=== PATIENT | male | born 1970 | race African-American/Black ===

== ENCOUNTER 2019-11-28 19:55 | Emergency (ER) | payer BC ==
[~2019-11-28] VITALS: Ht 193 cm; Wt 124.4 kg
--- NOTE | 2019-11-28 20:57 | NUR ---
[employer]PERVIS[employer] CUTTING: PT WALKED BACK FROM LOBBY TO ROOM AT THIS TIME. STEADY UPON AMBULATION. NO ACUTE DISTRESS NOTED.
[2019-11-28] MEDS ORDERED: LOSA25TA25 PO (21:05)
[2019-11-28] MEDS ORDERED: METF1000 PO (21:05)
[2019-11-28] MEDS ORDERED: ASPIRIN 81 MG TABLET CHEW PO ONE (21:30)
[2019-11-28] MEDS ORDERED: ASPIRIN 81 MG TABLET CHEW ONE (21:45)
--- NOTE | 2019-11-28 21:46 | NUR ---
Pt medicated with 162mg aspirin per DEC. Pt in [facility] no acute distress, denies chest pain, call light placed within reach.
[2019-11-28 21:52] LABS: BASOPHILS # (AUTO) 0.04 x10^3/uL (0-0.1); BASOPHILS % (AUTO) 1 % (0-1); EOSINOPHILS # (AUTO) 0.16 x10^3/uL (0-0.4); EOSINOPHILS % (AUTO) 2 % (1-7); LYMPHOCYTES # (AUTO) 1.37 x10^3/uL (1-3.4); LYMPHOCYTES % (AUTO) 18 % (22-44); MD NO; MEAN CORPUSCULAR HGB CONC 32.1 g/dL (33.2-36.2); MEAN CORPUSCULAR VOLUME 80.9 fL (81-97); MEAN PLATELET VOLUME 8.5 fL (7.4-10.4); MONOCYTES # (AUTO) 0.57 x10^3/uL (0.2-0.8); MONOCYTES % (AUTO) 8 % (2-9); NEUTROPHILS % (AUTO) 71 % (42-75); PLATELET COUNT 355 x10^3/uL (130-400); RED BLOOD COUNT 4.49 x10^6/uL (4.38-5.82)
[2019-11-28 22:00] LABS: ALBUMIN 2.6 g/dL (3.4-5.0); ANION GAP 3 mmol/L (5-15); CALCIUM 8.6 mg/dL (8.5-10.1); CHLORIDE 105 mmol/L (98-107)
[2019-11-28 22:04] LABS: TROPONIN I < 0.015 ng/mL (0.000-0.045)
--- NOTE | 2019-11-28 23:19 | NUR ---
Pt resting comfortably, denies chest pain, states he feels a lot better.
[2019-11-29 00:01] LABS: TROPONIN I < 0.015 ng/mL (0.000-0.045)
[2019-11-29 00:34] VITALS: BP 164/94
== END 2019-11-29 00:51 | disposition home or self-care (01) ==
LOC: ED 11-29 00:39
DX: R00.2 Palpitations (principal); M25.512 Pain in left shoulder; I10 Essential (primary) hypertension; E11.9 Type 2 diabetes mellitus without complications
CPT/HCPCS: 36415; 71045; 80048; 82040; 83735; 83880; 84484; 85025; 93005; 99285